=== PATIENT | male | born 1980 | race Caucasian/White ===

== ENCOUNTER 2017-01-30 07:07 | Day surgery (SDC) | payer BC ==
[~2017-01-30] VITALS: Ht 170.2 cm; Wt 91.1 kg
[2017-01-30] VITALS (7 sets, daily range): BP systolic 99–140; BP diastolic 64–90; PULSE 58–73; TEMP 97.6
[~2017-01-30 07:07] MED LIST: ACETAMINOPHEN W1 TA6 PO; NAPROSYN500 MG PO; NO HOME MEDICATIONS
[2017-01-30] MEDS ORDERED: SYNTHROID 0.0.025 MG PO (07:32)
[2017-01-30] MEDS ORDERED: PERCOCET 325 MG1 TA2 PO (10:28)
[2017-01-30] MEDS ORDERED: MOTRIN 600600 MG/TAB PO (10:29)
[2017-01-30] MEDS ORDERED: COLACE 100100 MG/CAP PO (10:29)
== END 2017-01-30 13:05 | disposition home or self-care (01) ==
LOC: SDCO 07:07
DX: K42.9 Umbilical hernia without obstruction or gangrene (principal); E03.9 Hypothyroidism, unspecified; D64.9 Anemia, unspecified
CPT/HCPCS: J0690; J1885; J2405; J2704; J3010; J7120

== ENCOUNTER 2022-04-04 07:17 | Day surgery (SDC) | payer OTHER ==
[~2022-04-04] VITALS: Ht 170.2 cm; Wt 82.6 kg
[~2022-04-04 07:17] MED LIST changes: +COLACE 100100 MG/CAP PO; +MOTRIN 600600 MG/TAB PO; +PERCOCET 325 MG1 TA2 PO; +SYNTHROID 0.0.025 MG PO
[2022-04-04 07:49] VITALS: BP 126/89; PULSE 96; TEMP 97.3
[2022-04-04] MEDS ORDERED: FLEXERIL5 MG PO (08:07)
[2022-04-04 09:20] VITALS: BP 107/82; PULSE 85; TEMP 98
[2022-04-04 09:35] VITALS: BP 105/74; PULSE 70
[2022-04-04 09:50] VITALS: BP 109/74; PULSE 68
--- NOTE | 2022-04-04 09:54 | NUR ---
0920 - PT arrives from procedure and was settled by MORGAN Singh. Verbal room report then obtained. Snack and drink provided; PT denies pain/nausea. Non-slip socks are on and call marsh is within reach if needed. 0935 - VSS. PT provided additional snack and drink; denies pain/nasuea. PT requested RN contact [facility] to schedule ride home. Call [facility] remains within reach if needed.
--- NOTE | 2022-04-04 10:03 | NUR ---
0950- S. IV discontinued. catheter tip intact and pressure bandage applied; no redness or swelling noted. PT refused RN assistance changing into personal clothes. call marsh remains within reach. [facility] bus stated would arrive in next 10 minutes.
--- NOTE | 2022-04-04 10:15 | NUR ---
1010 - PT dismissed from endo via wheelchair to the PT entrence by Karla MORA. PT had DC packet and personal belongings; PT boarded [facility] bus for transport home.
== END 2022-04-04 10:10 | disposition home or self-care (01) ==
LOC: SDCO 07:17
DX: Z12.11 Encounter for screening for malignant neoplasm of colon (principal); K57.30 Diverticulosis of large intestine without perforation or abscess without bleeding; K64.0 First degree hemorrhoids; Z83.71 Family history of colonic polyps
CPT/HCPCS: J2704; J7120